=== PATIENT | male | born 1955 | race Caucasian/White ===

== ENCOUNTER 2020-03-12 20:57 | Inpatient (IN) | payer OTHER, SELFPAY ==
[2020-03-12] VITALS (8 sets, daily range): BP systolic 89–97; BP diastolic 70–75; PULSE 77–91; RESP 13–30; TEMP 36.6; O2SAT 100
--- NOTE | ~2020-03-12 | XR_ITS ---
EXAMINATION: XR chest 1V portable 03/12/2020 22:03 INDICATION: Shortness of breath PROCEDURE: AP portable chest COMPARISON: No prior studies for comparison. FINDINGS: The lungs are clear. Cardiomegaly. There are no pleural effusions. There is no pneumothora x suspected. IMPRESSION: 1: NO ACUTE CARDIOPULMONARY DISEASE. Reviewed, dictated and finalized at location A.
--- NOTE | ~2020-03-12 | CT_ITS ---
EXAMINATION: CTA chest PE protocol DATE: 03/12/2020 23:21 CDT INDICATION: Shortness of breath. TECHNIQUE: Computed tomographic angiography (CTA) of the chest was performed with 100 mL Omnipaque-35 0 intravenous contrast. The dose-length product was 568.47 mGy-cm. Maximum intensity projection 3D-re constructions of the aorta and other arteries were constructed by the technologist on a separate work station. Automated exposure control and iterative reconstruction technique were employed. COMPARISON: Chest dated 03/12/2020 FINDINGS: Study is technically adequate. Evaluation of the lower lobe segmental pulmonary arteries li mited by motion artifact. No central pulmonary embolism. Small right pleural effusion. Trace left ple ural effusion. Small amount of ascites in the upper abdomen. Evaluation for pulmonary nodules limited by motion. Cardiomegaly. There is atherosclerosis of the aorta and coronary arteries. No thoracic ly mphadenopathy. No focal airspace consolidation. Mild thoracic spondylosis. IMPRESSION: 1. No large central pulmonary embolism. Evaluation of the peripheral pulmonary arteries limited by mo tion artifact. 2: Small pleural effusions. 3: Small amount of ascites. Reviewed, dictated and finalized at location A. IMPRESSION: 1. No large central pulmonary embolism. Evaluation of the peripheral pulmonary arteries limited by motion artifact. 2: Small pleural effusions. 3: Small amount of ascites.
--- NOTE | ~2020-03-12 | US_ITS ---
EXAMINATION: US venous doppler LE EXAM DATE: 03/13/2020 10:49 INDICATION: Shortness of breath and elevated d-dimer. TECHNIQUE: Multiple grayscale, color flow and Doppler images of the lower extremity deep venous syste ms bilaterally were obtained and reviewed. There is no prior study for comparison. FINDINGS: RIGHT SIDE Common femoral: -------- Normal. Profunda femoral: ------- Normal. Femoral: Thrombosed. Popliteal: Nonocclusive thrombus. Posterior tibial: ---------Nonocclusive thrombus. Peroneal: Nonocclusive thrombus. Gastrocnemius: Not visualized. Soleus: Not visualized. Greater saphenous: ----- Normal. Lesser saphenous: ------ Not visualized. LEFT SIDE Common femoral: -------- Normal. Profunda femoral: ------- Normal. Femoral: Normal. Popliteal: Nonocclusive thrombus. Posterior tibial: --------- Normal. Peroneal: Normal. Gastrocnemius: Not visualized. Soleus: Not visualized. Greater saphenous: ----- Normal. Lesser saphenous: ------ Not visualized. IMPRESSION: Positive for bilateral DVT, more extensive on the right. Reviewed, dictated and finalized at location A.
--- NOTE | 2020-03-12 21:04 | ECG_ITS ---
Measurements Intervals [place] Rate: 91 P: 64 VA: 223 QRS: -49 QRSD: 119 T: 126 QT: 379 QTc: 467 Interpretive Statements SINUS RHYTHM WITH FIRST DEGREE AV BLOCK VENTRICULAR PREMATURE COMPLEXES POSSIBLE LEFT ATRIAL ENLARGEMENT INTRAVENTRICULAR CONDUCTION DELAY LEFT VENTRICULAR HYPERTROPHY AND ST-T CHANGE EXTENSIVE ANTERIOR INFARCT, AGE INDETERMINATE INFERIOR INFARCT, AGE INDETERMINATE ST-T WAVE ABNORMALITY IN HIGH LATERAL LEADS- CONSIDER ISCHEMIA BASELINE ARTIFACT- I, II, AVR, V4-V6 ABNORMAL ECG Electronically Signed On 03-13-2020 14:02:04 CDT by Mohan Maldonado D.O.
--- NOTE | 2020-03-12 21:20 | PC.NURSE ---
Called lab to add on D-Dimer
[2020-03-12 21:25] LABS: Alveolar/Arterial O2 Gradient 90.7 mmHg; Base Excess ABG -4.2 mEq/l (+/-2.0); Carboxyhemoglobin 2.5 % THb (0-2.0); Fractional Inspired Oxygen 32 %; Methemoglobin ABG 0.4 %THb (0-1.5); Oxygen Content ABG 19.3 %vol (16.0-22.0); Oxygen Saturation ABG 97.9 % (95.0-100.0); PCO2 ABG 29.9 mmHg (35.0-45.0); PO2 ABG 102.5 mmHg (80.0-100.0); Reduced Hemoglobin 2.1 %THb (0-5.0); Total Hemoglobin 14.4 g/dL (12.0-18.0)
[2020-03-12 21:26] LABS: Device NASAL CANNULA; Modified Allen's Test Pass; Site Drawn LEFT RADIAL
[2020-03-12 21:28] LABS: Basophils Percent Auto 0.3 % (0.2-1.2); Eosinophils Absolute Auto 0.1 K/mm3 (0-0.3); Hematocrit 47.6 % (42.0-52.0); Hemoglobin 14.5 g/dL (14.0-18.0); Immature Granulocyte Absolute 0.03 K/mm3 (0.00-0.031); Immature Granulocyte Percent A 0.4 % (0-0.5); Lymphocytes Absolute Auto 2.77 K/mm3 (0.9-3.2); Lymphocytes Percent Auto 37.8 % (18.3-44.2); Mean Corpuscular HGB Conc 30.5 g/dl (32-36); Mean Corpuscular Hemoglobin 25.8 pg (26-34); Mean Corpuscular Volume 84.8 fl (80-100); Mean Platelet Volume 11.7 fl (7.4-10.4); Monocytes Absolute Auto 0.7 K/mm3 (0.1-0.6); Neutrophils Absolute Auto 3.7 K/mm3 (1.3-6.7); Neutrophils Percent Auto 50.5 % (45.5-73.1); Platelet Count Result 193 k/mm3 (150-375); Red Blood Count 5.61 M/mm3 (4.6-6.20); Red Cell Distribution Width 17.3 % (11.5-14.5); White Blood Count 7.3 K/mm3 (4.5-10.0)
[2020-03-12 21:33] LABS: INR 1.4; Prothrombin Time 16.6 Seconds (11.1-14.7)
[2020-03-12 21:34] LABS: Alanine Aminotransferase 23 U/L (4-50); Albumin Level 3.6 g/dL (3.5-5.1); Alkaline Phosphatase 119 U/L (38-126); Anion Gap 11.5 mmol/L (7-16); Aspartate Amino Transferase 20 U/L (17-59); Bilirubin,Total 1.5 mg/dL (0.2-1.3); Blood Urea Nitrogen 17 mg/dL (9-20); Calcium 8.5 mg/dL (8.4-10.2); Carbon Dioxide 23 mmol/L (22-30); Chloride 105 mmol/L (98-107); Estimated CRCL calculation 90 ml/min; Estimated Glomerular Filt Rate > 60; Glucose 217 mg/dL (75-110); Lipase 56 U/L (23-300); Partial Thromboplastin Time 25.3 SECONDS (22.3-36.8); Potassium 4.5 mmol/L (3.4-5.0); Sodium 135 mmol/L (137-145)
[2020-03-12 21:45] LABS: D Dimer 1.46 ug/mL (<0.48)
[2020-03-12 21:49] LABS: NT Pro B Type Natriuretic Pept 12000 PG/ML (5-100); Troponin I 0.045 ng/mL (0.000-0.034)
[2020-03-12 21:55] LABS: Add Urine Microscopic? NO; Appearance Urine Clear (Clear); Bilirubin Urine Negative (Negative); Blood Urine Negative (Negative); Color Urine Yellow (Yellow); Glucose Urine UA Negative (Negative); Ketones Urine Negative (Negative); Leukocyte Esterase Ur Negative LEU/UL (Negative); Nitrate Urine Negative (Negative); Protein Urine Negative (Negative); Specific Grav Ur 1.009 (1.001-1.035); Urobilinogen Urine Negative mg/dL (<2.0)
--- NOTE | 2020-03-12 22:33 | ED.GENADULT ---
HPI - General Adult General Chief complaint: Chest Pain Stated complaint: sob Time Seen by Provider: 03/12/20 21:14 Source: patient and family Mode of arrival: EMS Limitations: no limitations History of Present Illness HPI narrative: 64 years old white male history of diabetes, hypertension, hyperlipidemia, COPD, CHF, coronary artery disease, stroke, was discharged 2 days ago from [facility]. Because of shortness of breath and swelling legs. Patient was a scheduled to get pacemaker and defibrillator at [facility] November 2019 but because of the COVID-19, he could not. At home patient got up to go to the bathroom he ran out of breath. He does not have oxygen at home. Currently patient is asymptomatic as long as he laying down or sitting down. Patient is full code. Patient came by ambulance to our emergency room with the possibility of STEMI, EKG on arrival showed no STEMI. Dr. MELENDREZ was notified and agreed Related Data Allergies Allergy/AdvReac Type Severity Reaction Status Date / Time Cephalosporins Allergy Unknown Verified 05/31/17 11:34 Review of Systems Review of Systems: Narrative: CONSTITUTIONAL: Denies fever, chills, or sweats. EYES: Denies visual changes, redness, or discharge. ENT: Denies rhinorrhea, congestion, sore throat, or otalgia. CARDIOVASCULAR: Denies chest pain, palpitations, or edema. RESPIRATORY: Denies cough or dyspnea. GASTROINTESTINAL: Denies abdominal pain, nausea, vomiting, or diarrhea. GENITOURINARY: Denies dysuria or hematuria. SKIN: Denies rash or itching. MUSCULOSKELETAL: Denies back pain, joint pain, or myalgia. NEUROLOGIC: Denies headache, numbness, or weakness. PSYCHIATRIC: Denies anxiety or depression. [facility] Family History Family History Father Family history of lung cancer, Onset Age: 51 Social History Social History Smoking status: Heavy tobacco smoker Second hand tobacco smoke exposure: Yes Alcohol intake: never Exam Narrative: Exam Narrative: General appearance: Well-developed, well-nourished Skin: Normal color, 1+ edema lower extremity bilaterally more on the left side Head: Normocephalic, nontraumatic Eyes: Clear conjunctiva ENT: Oropharynx normal, ears normal, nose normal Neck: Supple, nontender Chest and respiratory: Airway patent, no respiratory distress, no accessory muscle use Heart: Regular rate/rhythm Abdomen: Soft, nontender, no organomegaly, quiet bowel sounds Vascular: Normal peripheral pulses, normal capillary refill. 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 My differential diagnosis COPD exacerbation, viral infection, CHF and acute coronary syndrome. Labs, chest x-ray, blood gas on 2 L ordered. Further plan to follow Differential Diagnosis Differential Diagnosis: CHF, COPD exacerbation, pneumonia, viral syndrome, electrolyte imbalance, coronary artery disease Vital Signs Vital Signs: Vital Signs Temperature 36.6
--- NOTE | 2020-03-12 23:12 | PC.NURSE ---
Report received from YOUNG Benítez. Assumed care of patient at this time.
[2020-03-12] MEDS: ENOXAPARIN 100 MG/ML SYRINGE 90 MG SUB-Q (23:22)
[2020-03-13] VITALS (19 sets, daily range): BP systolic 82–99; BP diastolic 63–81; PULSE 78–110; RESP 15–20; TEMP 36.1–36.9; O2SAT 94–100; BMI 26.9
--- NOTE | 2020-03-13 01:16 | PM.IMHP ---
H&P: HPI History of Present Illness Date/Time: 03/13/20 01:16 Chief complaint: Exertional shortness of breath++ Narrative: This is a 64 year old diabetic male with known history of CAD+, HTN, COPD, and severe systolic heart failure w/ EF of 10% presented to the hospital wtih a complaint of severe exertional shortness of breath. The patient was just discharged from [facility] two days ago. The patient was supposed to have an AICD placed in November of this year but this was canceled due to COVID-19. The patient is a chronic smoker and continues to smoke cigarettes. Tonight he complains that he has had severe shortness of breath with minimal activity. He denies any fevers, chills, or signifciant cough. He has also noticed worsening lower extremity swelling since he has been home. The patient denies any chest pain, abdominal pain, nausea, vomiting, headache, wheeze, dysuria, hematuria, diarrhea or rectal bleeding. The patient was found to be hypoxic in the ER tonight and has been placed on 2L of oxygen. CXR was obtained which was virtually unremarkable. On arrival to the ER, EMS had reported a possible STEMI but repeat EKG was sent to Cardiology and STEMI was canceled. We have been asked to admit the patient to the hospital for further care. He has no other complaints. Review of Systems Review of Systems: All systems reviewed & are unremarkable except as noted in HPI and below PMFSH Past Medical History Medical History (Updated 03/13/20 @ 01:40 by Adin Gardner MD) CAD (coronary artery disease) COPD (chronic obstructive pulmonary disease) Diabetes mellitus HTN (hypertension) with goal to be determined Systolic CHF Surgical History Surgical History (Updated 03/13/20 @ 01:21 by Adin Gardner MD) History of coronary artery stent placement Family History Family History Father Family history of lung cancer, Onset Age: 51 Social History Social History Smoking packs per day: 1 Smoking cigarettes per day: 20.0 Years smoked: 45 Smoking pack-years: 45.00 Smoking status: Heavy tobacco smoker Tobacco type: cigarettes Second hand tobacco smoke exposure: Yes Alcohol intake: never Substance use: never Substance use type: does not use Gender identity (if verbalized by the patient): Male Spiritual care concerns: No Meds Home Medications and Allergies Home Medications Medication Instructions Recorded Confirmed Type furosemide 40 mg PO DAILY 03/13/20 03/13/20 History Allergies Allergy/AdvReac Type Severity Reaction Status Date / Time Cephalosporins Allergy Unknown Verified 05/31/17 11:34 Vital Signs Vital Signs - 24 hr 03/12/20 21:01 03/12/20 22:28 03/12/20 23:23 Temperature 36.6 C 36.6 C Pulse Rate 91 85 78 Respiratory Rate 19 30 H Blood Pressure 97/74 L 89/75 L 90/70 L Pulse Oximetry 100 100 03/12/20 23:24 03/12/20 23:25 03/12/20 23:30 Temperature Pulse Rate 81 78 77 Respiratory Rate 18 18 21 H Blood Pressure 90/70 L 91/72 L Pulse Oximetry 100 03/12/20 23:31 03/12/20 23:45 03/13/20 00:33 Temperature 36.9 C Pulse Rate 80 83 83 Respiratory Rate 13 15 Blood Pressure 95/72 L Pulse Oximetry 96 03/13/20 00:45 03/13/20 01:00 Temperature 36.2 C L Pulse Rate 78 Respiratory Rate 16 Blood Pressure 88/70 L 99/81 L Pulse Oximetry 99 Exam Const: General: cooperative, alert, awake, ill appearing chronically and tired appearing Nutritional Appearance: thin Orientation/consciousness: patient oriented x3 HENMT: Head: normal to inspection General nose exam: Normal external nose present Face and sinus: normal facial exam Mouth: Yes Normal oral and palatal mucosa present and Yes oropharynx normal Eyes: Pupils: Equal, round and reactive pupils present EOM: EOMs intact bilaterally Neck: Neck: supple and no JVD Thyroid:
--- NOTE | 2020-03-13 01:25 | PC.NURSE ---
This patient, Rex Marr, was admitted to IMU Room 201-01 on 03/13/20 at 0045. Patient/family oriented to hospital policies and general routines including ID bracelet, bed and alarms, visiting hours, pain management, procedures, bathroom and other care routines, personal items, smoking policy, room service/diet, and visiting hours. Valuables list has been completed. Information on how to activate the Rapid Response Team has been discussed. Patient/Family are encouraged to report perceived risks to care and to ask questions if they do not understand what they are told or what they should do.
[2020-03-13 01:35] LABS: Troponin I 0.041 ng/mL (0.000-0.034)
[2020-03-13] MEDS: NICOTINE (*PBKC) 21 MG PATCH 1 PATCH TRANSDERM ×2 (01:47→08:43)
--- NOTE | 2020-03-13 01:47 | ECHO_ITS ---
Patient Info Name: Rex Marr Age: 64 years : 1955 Gender: Male Ht: 72 in Wt: 198 lbs BSA: 2.15 m2 HR: 85 bpm BP: 93 / 71 mmHg Heart Rhythm: Sinus Rhythm Technical Quality: Fair Exam Date: 03/13/2020 9:30 AM Exam Location: [facility] Pulmonary Patient Status: Inpatient Admit Date: 03/12/2020 Staff Ordering Physician: Adin Gardner MD Director Patient Accounting: Verónica Keller RDCS Attending Provider: Adin Gardner MD Referring Physician: Jj COLLAZO; Exam Type: CA echo dop color flow w con Study Info Complete two-dimensional, color flow and Doppler transthoracic echocardiogram is performed with contrast to opacify the left ventricle and to improve the deliniation of the left ventricle endocardial borders. Contrast/Agitated Saline Contrast/Ag. Saline: Definity Amount: 2.00 ml Summary 1. Left ventricular chamber dimension is severely enlarged. 2. Left ventricular systolic function is severely reduced, estimated at <15%. 3. There is mildly increased left ventricular wall thickness. 4. The left ventricular diastolic function is grade II diastolic dysfunction. 5. There is sessile thrombus visualized in the left ventricle. 6. Right ventricular chamber dimension is severely enlarged. 7. Right ventricular systolic function is reduced. 8. There is moderate mitral valve regurgitation. 9. There is moderate tricuspid valve regurgitation. 10. Mild pulmonary hypertension, estimated pulmonary arterial systolic pressure is 41 mmHg. 11. There is mild pulmonic regurgitation. 12. There is small pericardial effusion. Left Ventricle Left ventricular chamber dimension is severely enlarged. Left ventricular systolic function is severely reduced, estimated at <15%. There is mildly increased left ventricular wall thickness. The left ventricular diastolic function is grade II diastolic dysfunction. There is sessile thrombus visualized in the left ventricle. Right Ventricle Right ventricular chamber dimension is severely enlarged. Right ventricular systolic function is reduced. Left Atria Left atrial chamber dimension is moderately enlarged. Right Atria Right atrial chamber dimension is moderately enlarged. Atrial Septum Intact interatrial septum visualized by Doppler imaging. Aortic Valve The aortic valve is trileaflet. There is no aortic valve sclerosis. There is no aortic valve stenosis. There is trace aortic valve regurgitation. Pulmonic Valve The pulmonic valve is normal. There is no pulmonic valve stenosis. There is mild pulmonic regurgitation. Mitral Valve The mitral valve has thickened leaflets. There is no mitral valve stenosis. There is moderate mitral valve regurgitation. Tricuspid Valve The tricuspid valve leaflets are normal. There is no significant tricuspid valve stenosis. There is moderate tricuspid valve regurgitation. Mild pulmonary hypertension, estimated pulmonary arterial systolic pressure is 41 mmHg. Pericardium/Pleural The pericardium appears normal. There is small pericardial effusion. Inferior Vena Cava Dilated inferior vena cava with <50% collapse upon inspiration consistent with elevated right atrial pressure, 15 mmHg. Aorta The aortic root size at the sinus of Valsalva is normal. The prox ascending aorta size is normal. Left Ventricular Outflow Tract Name Mónica
[2020-03-13] MEDS: FUROSEMIDE INJ 40 MG/4 ML VIAL IV PUSH ×2 (02:14→17:20)
[2020-03-13 04:00] LABS: Basophils Percent Auto 0.3 % (0.2-1.2); Eosinophils Percent Auto 0.6 % (0-4.4); Hematocrit 44.4 % (42.0-52.0); Hemoglobin 13.6 g/dL (14.0-18.0); Immature Granulocyte Absolute 0.01 K/mm3 (0.00-0.031); Immature Granulocyte Percent A 0.2 % (0-0.5); Lymphocytes Absolute Auto 2.27 K/mm3 (0.9-3.2); Lymphocytes Percent Auto 35.2 % (18.3-44.2); Mean Corpuscular HGB Conc 30.6 g/dl (32-36); Mean Corpuscular Hemoglobin 25.6 pg (26-34); Mean Corpuscular Volume 83.6 fl (80-100); Mean Platelet Volume 11.2 fl (7.4-10.4); Monocytes Absolute Auto 0.6 K/mm3 (0.1-0.6); Monocytes Percent Auto 8.5 % (2.6-8.5); Neutrophils Absolute Auto 3.6 K/mm3 (1.3-6.7); Neutrophils Percent Auto 55.2 % (45.5-73.1); Platelet Count Result 181 k/mm3 (150-375); Red Blood Count 5.31 M/mm3 (4.6-6.20); Red Cell Distribution Width 16.6 % (11.5-14.5); White Blood Count 6.5 K/mm3 (4.5-10.0)
[2020-03-13 04:05] LABS: Anion Gap 10.7 mmol/L (7-16); Blood Urea Nitrogen 17 mg/dL (9-20); Calcium 8.4 mg/dL (8.4-10.2); Carbon Dioxide 26 mmol/L (22-30); Chloride 103 mmol/L (98-107); Estimated CRCL calculation 90 ml/min; Estimated Glomerular Filt Rate > 60; Glucose 160 mg/dL (75-110); Magnesium 1.9 mg/dL (1.6-2.3); Potassium 3.7 mmol/L (3.4-5.0); Sodium 136 mmol/L (137-145)
[2020-03-13 05:31] LABS: Thyroid Stimulating Hormone Reflex < 0.015 uIU/mL (0.465-4.68)
[2020-03-13 06:12] LABS: Free T4 Free Thyroxine Reflex 2.85 ng/dL (0.78-2.19)
[2020-03-13 08:11] LABS: Glucose Point of Care 128 (65-105)
[2020-03-13] MEDS: ENOXAPARIN 40 MG/0.4 ML SYRINGE SUB-Q (08:43)
--- NOTE | 2020-03-13 09:48 | P.PNIM_ITS ---
Progress Note: A&P Assessment and Plan (1) Systolic CHF: Qualifiers: Heart failure chronicity: acute on chronic Qualified Code(s): I50.23 - Acute on chronic systolic (congestive) heart failure Code(s): I50.20 - Unspecified systolic (congestive) heart failure Status: Acute Assessment and Plan: * Continue IV furosemide * add low-dose carvedilol per Cardiology * prognosis appears poor (2) DVT (deep venous thrombosis): Qualifiers: DVT location: lower extremity Affected thrombotic vein of extremity: popliteal Chronicity: acute Laterality: bilateral Qualified Code(s): I82.433 - Acute embolism and thrombosis of popliteal vein, bilateral Code(s): I82.409 - Acute embolism and thrombosis of unspecified deep veins of unspecified lower extremity Status: Acute Assessment and Plan: * Eliquis 10 mg b.i.d. day 1 * HAS-BLED score = 1 (3) Secondary pulmonary hypertension: Status: Acute Assessment and Plan: * likely due to congestive heart failure acute on chronic with possible pulmonary emboli (4) LV (left ventricular) mural thrombus: Code(s): I51.3 - Intracardiac thrombosis, not elsewhere classified Status: Acute Assessment and Plan: * anticoagulation (5) Elevated troponin: Code(s): R79.89 - Other specified abnormal findings of blood chemistry Status: Acute Assessment and Plan: * likely due to acute on chronic congestive heart failure (6) COPD (chronic obstructive pulmonary disease): Qualifiers: COPD type: unspecified COPD Qualified Code(s): J44.9 - Chronic obstructive pulmonary disease, unspecified Code(s): J44.9 - Chronic obstructive pulmonary disease, unspecified Status: Acute Assessment and Plan: * clinically stable (7) Tobacco dependence: Code(s): F17.200 - Nicotine dependence, unspecified, uncomplicated Status: Chronic (8) Hypoxia: Code(s): R09.02 - Hypoxemia Status: Acute (9) Pleural effusion: Code(s): J90 - Pleural effusion, not elsewhere classified Status: Acute (10) CAD (coronary artery disease): Qualifiers: Coronary Disease-Associated Artery/Lesion type: [place] artery [place] vs. transplanted heart: [place] heart Associated angina: without angina Qualified Code(s): I25.10 - Atherosclerotic heart disease of [place] coronary artery without angina pectoris Code(s): I25.10 - Atherosclerotic heart disease of [place] coronary artery without angina pectoris Status: Chronic Assessment and Plan: * currently without angina (11) HTN (hypertension) with goal to be determined: Code(s): I10 - Essential (primary) hypertension Status: Acute Assessment and Plan: * now hypotensive presumably due to low cardiac output (12) Diabetes mellitus: Qualifiers: Diabetes mellitus type: type 2 Diabetes mellitus 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 No chest pain. Comfortable this AM while at rest. Poor appetite. Review of Systems Review of Systems: All systems reviewed & are unremarkable excep
--- NOTE | 2020-03-13 09:48 | PM.IMPN ---
Progress Note: A&P Assessment and Plan (1) Systolic CHF: Qualifiers: Heart failure chronicity: acute on chronic Qualified Code(s): I50.23 - Acute on chronic systolic (congestive) heart failure Code(s): I50.20 - Unspecified systolic (congestive) heart failure Status: Acute Assessment and Plan: Continue IV furosemide add low-dose carvedilol per Cardiology prognosis appears poor (2) DVT (deep venous thrombosis): Qualifiers: DVT location: lower extremity Affected thrombotic vein of extremity: popliteal Chronicity: acute Laterality: bilateral Qualified Code(s): I82.433 - Acute embolism and thrombosis of popliteal vein, bilateral Code(s): I82.409 - Acute embolism and thrombosis of unspecified deep veins of unspecified lower extremity Status: Acute Assessment and Plan: Eliquis 10 mg b.i.d. day 1 HAS-BLED score = 1 (3) Secondary pulmonary hypertension: Status: Acute Assessment and Plan: likely due to congestive heart failure acute on chronic with possible pulmonary emboli (4) LV (left ventricular) mural thrombus: Code(s): I51.3 - Intracardiac thrombosis, not elsewhere classified Status: Acute Assessment and Plan: anticoagulation (5) Elevated troponin: Code(s): R79.89 - Other specified abnormal findings of blood chemistry Status: Acute Assessment and Plan: likely due to acute on chronic congestive heart failure (6) COPD (chronic obstructive pulmonary disease): Qualifiers: COPD type: unspecified COPD Qualified Code(s): J44.9 - Chronic obstructive pulmonary disease, unspecified Code(s): J44.9 - Chronic obstructive pulmonary disease, unspecified Status: Acute Assessment and Plan: clinically stable (7) Tobacco dependence: Code(s): F17.200 - Nicotine dependence, unspecified, uncomplicated Status: Chronic (8) Hypoxia: Code(s): R09.02 - Hypoxemia Status: Acute (9) Pleural effusion: Code(s): J90 - Pleural effusion, not elsewhere classified Status: Acute (10) CAD (coronary artery disease): Qualifiers: Coronary Disease-Associated Artery/Lesion type: [place] artery [place] vs. transplanted heart: [place] heart Associated angina: without angina Qualified Code(s): I25.10 - Atherosclerotic heart disease of [place] coronary artery without angina pectoris Code(s): I25.10 - Atherosclerotic heart disease of [place] coronary artery without angina pectoris Status: Chronic Assessment and Plan: currently without angina (11) HTN (hypertension) with goal to be determined: Code(s): I10 - Essential (primary) hypertension Status: Acute Assessment and Plan: now hypotensive presumably due to low cardiac output (12) Diabetes mellitus: Qualifiers: Diabetes mellitus type: type 2 Diabetes mellitus exterminator insulin use: without exterminator use Diabetes mellitus complication status: without complication Qualified Code(s): E11.9 - Type 2 diabetes mellitus without complications Code(s): E11.9 - Type 2 diabetes mellitus without complications Status: Chronic Assessment and Plan: diet controlled Subjective Date/time seen: 03/13/20 09:48 Interval history: Admitted 03/12 with increased WATKINS, ankle swelling. No chest pain. Comfortable this AM while at rest. Poor appetite. Review of Systems Review of Systems: All systems reviewed & are unremarkable except as noted in HPI and below Exam Narrative: Exam Narrative: HEENT: EOMI, PERRL, sclerae nonicteric, pharyngeal mucosa pink and intact NECK: No JVD, adenopathy, or thyromegaly CHEST: Clear to auscultation. Normal effort. HEART: NL S1/S2, regular, no murmur ABDOMEN: BS+, soft, nontender, no mass, no bruits EXTREMITIES: No cyanosis, 2+ PRETIBIAL EDEMA BILATERALLY NEUROLOGIC: CN intact and symmetric to inspection. M
[2020-03-13 12:19] LABS: Glucose Point of Care 168 (65-105)
[2020-03-13 12:24] LABS: Hematocrit 43.2 % (42.0-52.0); Hemoglobin 13.4 g/dL (14.0-18.0); Mean Corpuscular Hemoglobin 25.7 pg (26-34); Mean Corpuscular Volume 82.8 fl (80-100); Mean Platelet Volume 11.2 fl (7.4-10.4); Platelet Count Result 177 k/mm3 (150-375); Red Blood Count 5.22 M/mm3 (4.6-6.20); Red Cell Distribution Width 16.4 % (11.5-14.5); White Blood Count 6.1 K/mm3 (4.5-10.0)
[2020-03-13 12:35] LABS: Anion Gap 9.8 mmol/L (7-16); Blood Urea Nitrogen 19 mg/dL (9-20); Calcium 8.6 mg/dL (8.4-10.2); Carbon Dioxide 26 mmol/L (22-30); Chloride 104 mmol/L (98-107); Estimated CRCL calculation 90 ml/min; Estimated Glomerular Filt Rate > 60; Glucose 155 mg/dL (75-110); Magnesium 1.9 mg/dL (1.6-2.3); Potassium 3.8 mmol/L (3.4-5.0); Sodium 136 mmol/L (137-145)
--- NOTE | 2020-03-13 12:37 | PM.CNCAR ---
Assessment and Plan Assessment and plan (1) Elevated troponin: Code(s): R79.89 - Other specified abnormal findings of blood chemistry Status: Acute Assessment and Plan: this is not related to acute plaque rupture. Is related to heart failure (2) COPD (chronic obstructive pulmonary disease): Qualifiers: COPD type: unspecified COPD Qualified Code(s): J44.9 - Chronic obstructive pulmonary disease, unspecified Code(s): J44.9 - Chronic obstructive pulmonary disease, unspecified Status: Acute Assessment and Plan: related to tobacco (3) Acute on chronic systolic heart failure: Code(s): I50.23 - Acute on chronic systolic (congestive) heart failure Status: Acute Assessment and Plan: I am confused to his medical regimen. Request records from Janie and Dr. Haywood his office. Continue furosemide 40 mg IV daily. His blood pressure is very soft but I suspect he predominantly lives with a very low blood pressure. Will initiate very low-dose carvedilol therapy at 1.56 mg q.12 hours. he also needs some afterload reduction as /if he can tolerate. Will need to go very low and slow with his medical regimen. Basic metabolic panel in the morning. EKG in a.m. (4) CAD (coronary artery disease): Qualifiers: Coronary Disease-Associated Artery/Lesion type: [place] artery [place] vs. transplanted heart: [place] heart Associated angina: without angina Qualified Code(s): I25.10 - Atherosclerotic heart disease of [place] coronary artery without angina pectoris Code(s): I25.10 - Atherosclerotic heart disease of [place] coronary artery without angina pectoris Status: Chronic (5) LV (left ventricular) mural thrombus: Code(s): I51.3 - Intracardiac thrombosis, not elsewhere classified Status: Acute Assessment and Plan: Discontinue subcutaneous Lovenox and start him on oral anticoagulation. History of Present Illness History of Present Illness Consult date/time: 03/13/20 12:37 Requesting physician: Adin Gardner MD Consult reason: congestive heart failure Reason For Visit: Exertional shortness of breath++ Narrative: Reason for consultation: CHF date of service 03/13/2020 History: Patient is a 64-year-old male who follows with Dr. Haywood at [place]. Came to the hospital because of worsening shortness of breath. He was recently in the emergency department and hospital [facility]. He has a severely reduced ejection fraction and had formally been scheduled for an ICD but since Coronavirus hit he essentially disconnected from hospital care for a while. He was discharged recently from the hospital and was home for a couple days with a restarted developed worsening shortness of breath again. He denies any chest pain, syncope, presyncope, paroxysmal nocturnal dyspnea, orthopnea. He was found to be hypoxic in the ER with worsening swelling. BNP was elevated .He was started on diuretics. And is feeling mildly better at this point. Troponins were elevated and because of heart failure and elevated troponins, Cardiology consultation was requested. Review of Systems Review of Systems: All systems reviewed & are unremarkable except as noted in HPI and below Constitutional: Constitutional: Reports weakness Eyes: Eyes: Denies blurry vision ENT: Reports Normal hearing present Cardiovascular: Cardiovascular: Denies chest pain and Reports pedal edema Respiratory: Respiratory: Reports dyspnea Gastrointestinal: Gastrointestinal: Denies abdominal pain Genitourinary: Genitourinary: Denies dysuria Musculoskeletal: Musculoskeletal: Denies neck pain Integumentary/Breasts: Skin/Breast: Denies dry skin Neurologic: Denies headache(s) Psychiatric: Psychiatric: Denies anxiety Endocrine: Endocrine: Denies fatigue Hematologic/Lymphatic: Hematologic/Lymphatic: Denies easy bleeding Allergic/Immunologic: Allergic/Immunologic: Denie
[2020-03-13] MEDS: carvediloL 1.56 MG TABLET PO ×2 (13:15→20:12)
[2020-03-13 16:33] LABS: Glucose Point of Care 188 (65-105)
[2020-03-13] MEDS: APIXABAN 5 MG TABLET 10 MG PO (20:11)
[2020-03-13 20:38] LABS: Glucose Point of Care 210 (65-105)
[2020-03-14] VITALS (17 sets, daily range): BP systolic 90–103; BP diastolic 64–83; PULSE 79–117; RESP 18–21; TEMP 36.1–36.9; O2SAT 98–100
--- NOTE | 2020-03-14 08:00 | ECG_ITS ---
Measurements Intervals [place] Rate: 84 P: 67 DE: 233 QRS: -52 QRSD: 137 T: 125 QT: 426 QTc: 504 Interpretive Statements SINUS RHYTHM WITH FIRST DEGREE AV BLOCK VENTRICULAR TRIPLET LEFT AXIS DEVIATION LEFT BUNDLE BRANCH BLOCK INFERIOR INFARCT OR DUE TO LEFT BUNDLE BRANCH BLOCK BASELINE ARTIFACT- II, III ABNORMAL ECG Electronically Signed On 03-14-2020 9:01:14 CDT by Mohan Maldonado D.O.
[2020-03-14 08:28] LABS: Glucose Point of Care 131 (65-105)
[2020-03-14] MEDS: carvediloL 1.56 MG TABLET PO ×2 (08:48→20:34)
[2020-03-14] MEDS: APIXABAN 5 MG TABLET 10 MG PO ×2 (08:48→20:34)
[2020-03-14] MEDS: NICOTINE (*PBKC) 21 MG PATCH 1 PATCH TRANSDERM (08:49)
[2020-03-14 10:12] LABS: Hematocrit 44.4 % (42.0-52.0); Mean Corpuscular HGB Conc 31.5 g/dl (32-36); Mean Corpuscular Hemoglobin 25.7 pg (26-34); Mean Corpuscular Volume 81.6 fl (80-100); Mean Platelet Volume 10.9 fl (7.4-10.4); Platelet Count Result 186 k/mm3 (150-375); Red Blood Count 5.44 M/mm3 (4.6-6.20); Red Cell Distribution Width 16.7 % (11.5-14.5); White Blood Count 6.4 K/mm3 (4.5-10.0)
[2020-03-14 10:29] LABS: Anion Gap 11.7 mmol/L (7-16); Blood Urea Nitrogen 21 mg/dL (9-20); Calcium 8.7 mg/dL (8.4-10.2); Carbon Dioxide 24 mmol/L (22-30); Chloride 105 mmol/L (98-107); Estimated CRCL calculation 90 ml/min; Estimated Glomerular Filt Rate > 60; Glucose 130 mg/dL (75-110); Potassium 3.7 mmol/L (3.4-5.0); Sodium 137 mmol/L (137-145)
--- NOTE | 2020-03-14 10:42 | PM.PNCARD ---
Progress Note: A&P Assessment and Plan (1) Elevated troponin: Code(s): R79.89 - Other specified abnormal findings of blood chemistry Status: Acute Assessment and Plan: this is not related to acute plaque rupture. Is related to heart failure (2) COPD (chronic obstructive pulmonary disease): Qualifiers: COPD type: unspecified COPD Qualified Code(s): J44.9 - Chronic obstructive pulmonary disease, unspecified Code(s): J44.9 - Chronic obstructive pulmonary disease, unspecified Status: Acute Assessment and Plan: related to tobacco (3) Acute on chronic systolic heart failure: Code(s): I50.23 - Acute on chronic systolic (congestive) heart failure Status: Acute Assessment and Plan: Request records from [facility] and Dr. Haywood his office. Continue furosemide 40 mg IV daily. His blood pressure is very soft but I suspect he predominantly lives with a very low blood pressure. Will initiate very low-dose carvedilol therapy at 1.56 mg q.12 hours. he also needs some afterload reduction as /if he can tolerate. Will need to go very low and slow with his medical regimen. replace potassium with 40 mEq p.o. x1. Basic metabolic panel and magnesium level in the morning. Given the severe cardiomyopathy, frequent ventricular ectopy, left bundle branch block, he needs a BIV ICD (4) CAD (coronary artery disease): Qualifiers: Coronary Disease-Associated Artery/Lesion type: [place] artery [place] vs. transplanted heart: [place] heart Associated angina: without angina Qualified Code(s): I25.10 - Atherosclerotic heart disease of [place] coronary artery without angina pectoris Code(s): I25.10 - Atherosclerotic heart disease of [place] coronary artery without angina pectoris Status: Chronic (5) LV (left ventricular) mural thrombus: Code(s): I51.3 - Intracardiac thrombosis, not elsewhere classified Status: Acute Assessment and Plan: Continue oral anticoagulation Subjective Date/time seen: 03/14/20 10:42 Interval history: reason for admission /chief complaint: Shortness of breath, edema, heart failure Date of service 03/14/2020: He feels a little better today. No chest pain. Swelling is still present. Less short of breath Review of Systems Review of Systems: All systems reviewed & are unremarkable except as noted in HPI and below Constitutional: Constitutional: Denies fatigue, Denies headache(s) and Reports weakness Eyes: Eyes: Denies blurry vision ENT: Reports Normal hearing present, Denies headache(s) and Denies neck pain Cardiovascular: Cardiovascular: Denies chest pain, Reports pedal edema and Reports dyspnea Respiratory: Respiratory: Reports dyspnea Gastrointestinal: Gastrointestinal: Denies abdominal pain Genitourinary: Genitourinary: Denies dysuria Musculoskeletal: Musculoskeletal: Denies neck pain Integumentary/Breasts: Skin/Breast: Denies dry skin Neurologic: Reports Normal hearing present, Denies headache(s) and Reports weakness Psychiatric: Psychiatric: Denies anxiety Endocrine: Endocrine: Denies fatigue Hematologic/Lymphatic: Hematologic/Lymphatic: Denies easy bleeding Allergic/Immunologic: Allergic/Immunologic: Denies GI upset with certain foods Exam Narrative: Exam Narrative: Overall pleasant Const: General: no acute distress HENMT: General nose exam: Normal nares present Eyes: Sclera: sclerae normal Neck: Neck: no JVD Chest: Other: no reproducible chest wall pain to palpation Resp: Auscultation: clear to auscultation bilaterally Cardio: Rate: regular rate Skin: General skin exam: normal color Neuro: Cranial nerves: Yes Normal hearing present Cognition (Neuro): normal cognition Speech: normal speech Extrem: General: edema ( 2+ bilateral lower extremity edema) bilateral Psych: Mental Status: mental status grossly normal Objective Data Vital Signs Vital Sign
[2020-03-14] MEDS: POTASSIUM CHLORIDE 20 MEQ TABLET 40 MEQ PO (12:15)
[2020-03-14 12:29] LABS: Glucose Point of Care 176 (65-105)
--- NOTE | 2020-03-14 12:46 | PM.IMPN ---
Progress Note: A&P Assessment and Plan (1) Systolic CHF: Qualifiers: Heart failure chronicity: acute on chronic Qualified Code(s): I50.23 - Acute on chronic systolic (congestive) heart failure Code(s): I50.20 - Unspecified systolic (congestive) heart failure Status: Acute Assessment and Plan: Echo shows EF <15%. He has refused a life vest. Cardiology has been consulted and their recommendations are greatly appreciated. Continue IV furosemide 40 mg daily Continue low-dose carvedilol per cardiology recommendations He will require a biventricular ICD per cardiology. (2) DVT (deep venous thrombosis): Qualifiers: Affected thrombotic vein of extremity: popliteal Chronicity: acute DVT location: lower extremity Laterality: bilateral Qualified Code(s): I82.433 - Acute embolism and thrombosis of popliteal vein, bilateral Code(s): I82.409 - Acute embolism and thrombosis of unspecified deep veins of unspecified lower extremity Status: Acute Assessment and Plan: Bilateral DVTs, most extensive on right side. HAS-BLED score = 1 Continue eliquis 10 mg bid (Day 2) for 7 days, then eliquis 5 mg bid. Prior auth for eliquis was denied, therefore will plan to provide patient with 30 day coupon and will discuss with PCP tomorrow for further management. Care coordination is following. (3) LV (left ventricular) mural thrombus: Code(s): I51.3 - Intracardiac thrombosis, not elsewhere classified Status: Acute Assessment and Plan: Evident on echocardiogram. Continue anticoagulation with Eliquis (4) Elevated troponin: Code(s): R79.89 - Other specified abnormal findings of blood chemistry Status: Acute Assessment and Plan: Most likely due to acute on chronic congestive heart failure. ACS is not suspected. Continue to closely monitor symptoms. (5) COPD (chronic obstructive pulmonary disease): Qualifiers: COPD type: unspecified COPD Qualified Code(s): J44.9 - Chronic obstructive pulmonary disease, unspecified Code(s): J44.9 - Chronic obstructive pulmonary disease, unspecified Status: Acute Assessment and Plan: Chronic and stable. He is maintaining adequate oxygenation on room air. Supplemental O2 as needed. Continue bronchodilators as needed. (6) Tobacco dependence: Code(s): F17.200 - Nicotine dependence, unspecified, uncomplicated Status: Chronic Assessment and Plan: He smokes 1 ppd. Nicotine patch Continue to encourage smoking cessation. (7) Pleural effusion: Code(s): J90 - Pleural effusion, not elsewhere classified Status: Acute Assessment and Plan: Small right and trace left pleural effusion, most likely secondary to CHF. Continue IV lasix. (8) CAD (coronary artery disease): Qualifiers: Associated angina: without angina Coronary Disease-Associated Artery/Lesion type: [place] artery [place] vs. transplanted heart: [place] heart Qualified Code(s): I25.10 - Atherosclerotic heart disease of [place] coronary artery without angina pectoris Code(s): I25.10 - Atherosclerotic heart disease of [place] coronary artery without angina pectoris Status: Chronic Assessment and Plan: Stable and asymptomatic at this time. Continue to monitor. (9) HTN (hypertension) with goal to be determined: Code(s): I10 - Essential (primary) hypertension Status: Acute Assessment and Plan: Blood pressures have been soft, which is likely due to low cardiac output. Continue very low dose carvedilol per cardiology recommendations. Monitor blood pressures closely. 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
[2020-03-14] MEDS: FUROSEMIDE INJ 40 MG/4 ML VIAL IV PUSH (17:06)
[2020-03-14 17:18] LABS: Glucose Point of Care 198 (65-105)
[2020-03-14 20:57] LABS: Glucose Point of Care 209 (65-105)
[2020-03-15] VITALS (16 sets, daily range): BP systolic 98–108; BP diastolic 55–79; PULSE 85–106; RESP 18–24; TEMP 36.3–37; O2SAT 95–100
[2020-03-15 08:14] LABS: Hematocrit 44.4 % (42.0-52.0); Hemoglobin 13.6 g/dL (14.0-18.0); Mean Corpuscular HGB Conc 30.6 g/dl (32-36); Mean Corpuscular Volume 81.5 fl (80-100); Mean Platelet Volume 10.7 fl (7.4-10.4); Platelet Count Result 188 k/mm3 (150-375); Red Blood Count 5.45 M/mm3 (4.6-6.20); Red Cell Distribution Width 16.8 % (11.5-14.5); White Blood Count 6.2 K/mm3 (4.5-10.0)
[2020-03-15 08:26] LABS: Anion Gap 8.9 mmol/L (7-16); Blood Urea Nitrogen 23 mg/dL (9-20); Calcium 8.5 mg/dL (8.4-10.2); Carbon Dioxide 26 mmol/L (22-30); Chloride 106 mmol/L (98-107); Estimated CRCL calculation 90 ml/min; Estimated Glomerular Filt Rate > 60; Glucose 146 mg/dL (75-110); Potassium 3.9 mmol/L (3.4-5.0); Sodium 137 mmol/L (137-145)
[2020-03-15] MEDS: carvediloL 1.56 MG TABLET PO (08:50)
[2020-03-15] MEDS: APIXABAN 5 MG TABLET 10 MG PO ×2 (08:50→20:59)
[2020-03-15 08:54] LABS: Glucose Point of Care 135 (65-105)
[2020-03-15] MEDS: NICOTINE (*PBKC) 21 MG PATCH 1 PATCH TRANSDERM (08:55)
--- NOTE | 2020-03-15 11:11 | PM.PNCARD ---
Progress Note: A&P Assessment and Plan (1) Acute on chronic systolic heart failure: Code(s): I50.23 - Acute on chronic systolic (congestive) heart failure Status: Acute Assessment and Plan: Records from [facility] received. Was hospitalized from 03/05 to 03/08 for shortness of breath and lower extremity edema. Discharge diagnosis CHF systolic/diastolic acute on chronic. Hypertension. CAD. Old CVA. Tobacco use. Hyperlipidemia. Chronic COPD not in exacerbation According to the notes his echo showed severe global LV systolic delicate dysfunction with an ejection fraction of 10%. Grade 2 diastolic dysfunction. D-dimer was elevated but lower extremity Doppler was negative for DVT. Discharge medications: Amiodarone 200 mg daily Aspirin 81 mg daily Atorvastatin 40 mg at bedtime Carvedilol 25 mg at breakfast. 12.5 mg at bedtime. Clopidogrel 75 mg daily Furosemide 60 mg daily Losartan 25 mg daily Nitroglycerin 0.4 mg daily Polyethylene glycol 17 g daily Potassium chloride 20 mEq daily Flomax 0.4 mg daily Metformin 1000 mg b.i.d. Symbicort 80/4.5 2 puffs inhalation b.i.d. Spironolactone 25 mg daily. He tells me that his takes care of his medications. Hopefully if she visits today we will be able to straight out his medications. Blood pressure remained soft. Continue carvedilol 1.56 mg every 12 hours. Continue furosemide 40 mg daily. Change the time of the furosemide to morning. He also needs some afterload reduction as /if he can tolerate. Will need to go very low and slow with his medical regimen. Continue to supplement potassium. Basic metabolic panel and magnesium daily. Given the severe cardiomyopathy, frequent ventricular ectopy, left bundle branch block, he needs a BIV ICD . Evidently this has been discussed in the past. On discharge from [facility] he was to follow up with his primary pediatric oncologist regarding the BiV ICD (2) Elevated troponin: Code(s): R79.89 - Other specified abnormal findings of blood chemistry Status: Acute Assessment and Plan: This is not related to acute plaque rupture. Is related to heart failure (3) COPD (chronic obstructive pulmonary disease): Qualifiers: COPD type: unspecified COPD Qualified Code(s): J44.9 - Chronic obstructive pulmonary disease, unspecified Code(s): J44.9 - Chronic obstructive pulmonary disease, unspecified Status: Acute Assessment and Plan: Related to tobacco (4) CAD (coronary artery disease): Qualifiers: Coronary Disease-Associated Artery/Lesion type: [place] artery [place] vs. transplanted heart: [place] heart Associated angina: without angina Qualified Code(s): I25.10 - Atherosclerotic heart disease of [place] coronary artery without angina pectoris Code(s): I25.10 - Atherosclerotic heart disease of [place] coronary artery without angina pectoris Status: Chronic Assessment and Plan: Per history. No ischemic symptoms. (5) LV (left ventricular) mural thrombus: Code(s): I51.3 - Intracardiac thrombosis, not elsewhere classified Status: Acute Assessment and Plan: Continue oral anticoagulation with apixaban. Also has bilateral DVT more extensive on the right. Additional Plan Plan discussed with Dr. Carrera [id number] 03/15/2020 Time Spent With Patient Time with patient: less than 15 minutes Subjective Date/time seen: 03/15/20 11:11 Interval history: Follow up for: acute on chronic systolic heart failure, COPD, mural thrombus, DVT, Date of service: 03/15/2020 Subjective: Denied chest discomfort. Shortness of breath improved. Not sure if his lower extremity edema is improved. No lightheadedness or dizziness. Review of Systems Constitutiona
[2020-03-15] MEDS: INSULIN ASPART (*BKC) 100 UNITS/ML SUB-Q (12:29)
[2020-03-15] MEDS: FUROSEMIDE INJ 40 MG/4 ML VIAL IV PUSH (12:29)
[2020-03-15 12:44] LABS: Glucose Point of Care 206 (65-105)
--- NOTE | 2020-03-15 13:25 | P.PNIM_ITS ---
Progress Note: A&P Assessment and Plan (1) Systolic CHF: Qualifiers: Heart failure chronicity: acute on chronic Qualified Code(s): I50.23 - Acute on chronic systolic (congestive) heart failure Code(s): I50.20 - Unspecified systolic (congestive) heart failure Status: Acute Assessment and Plan: Echo shows EF <15%. He was recently hospitalized from 03/05-03/08 related to CHF. He has previously refused life vest. * Cardiology has been consulted and their recommendations are greatly appreciated. * Continue IV furosemide 40 mg IV daily * Continue low-dose carvedilol per cardiology recommendations, increase to 3.25 mg bid * Begin spironolactone 25 mg daily per cardiology * He will require a biventricular ICD by his primary nursing educator. This has been discussed with him at a previous appointment. * Continue daily weights, 1500 ml fluid restriction, monitoring I&Os, and low sodium diet. (2) DVT (deep venous thrombosis): Qualifiers: Affected thrombotic vein of extremity: popliteal Chronicity: acute DVT location: lower extremity Laterality: bilateral Qualified Code(s): I82.433 - Acute embolism and thrombosis of popliteal vein, bilateral Code(s): I82.409 - Acute embolism and thrombosis of unspecified deep veins of unspecified lower extremity Status: Acute Assessment and Plan: Bilateral DVTs, most extensive on right side. HAS-BLED score = 1 * Continue eliquis 10 mg bid (Day 3) for 7 days, then eliquis 5 mg bid. * Prior auth for eliquis was denied, therefore will plan to provide patient with 30 day coupon. Care coordination is following. I placed a call to PCP to inform and discuss care home anticoagulation plans and am waiting for return. (3) LV (left ventricular) mural thrombus: Code(s): I51.3 - Intracardiac thrombosis, not elsewhere classified Status: Acute Assessment and Plan: Evident on echocardiogram. Secondary to severe systolic HF. * Continue anticoagulation with Eliquis (4) Elevated troponin: Code(s): R79.89 - Other specified abnormal findings of blood chemistry Status: Acute Assessment and Plan: Most likely due to acute on chronic congestive heart failure. ACS is not suspected. * Continue to closely monitor symptoms. (5) COPD (chronic obstructive pulmonary disease): Qualifiers: COPD type: unspecified COPD Qualified Code(s): J44.9 - Chronic obstructive pulmonary disease, unspecified Code(s): J44.9 - Chronic obstructive pulmonary disease, unspecified Status: Acute Assessment and Plan: Chronic and stable. He is maintaining adequate oxygenation on room air. * Supplemental O2 as needed. * Continue bronchodilators as needed. (6) Tobacco dependence: Code(s): F17.200 - Nicotine dependence, unspecified, uncomplicated Status: Chronic Assessment and Plan: He smokes 1 ppd. * Continue nicotine patch * Continue to encourage smoking cessation. (7) Pleural effusion: Code(s): J90 - Pleural effusion, not elsewhere classified Status: Acute Assessment and Plan: Small right and trace left pleural effusion, most likely secondary to CHF. * Continue IV lasix. (8) CAD (coronary artery disease): Qualifiers: Associated angina: without angina Coronary Disease-Associated Artery/Lesion type: [place] artery [place] vs. transplanted heart: [place] heart Qualified Code(s): I25.10 - Atherosclerotic heart disease of [place] coronar
--- NOTE | 2020-03-15 13:25 | PM.IMPN ---
Progress Note: A&P Assessment and Plan (1) Systolic CHF: Qualifiers: Heart failure chronicity: acute on chronic Qualified Code(s): I50.23 - Acute on chronic systolic (congestive) heart failure Code(s): I50.20 - Unspecified systolic (congestive) heart failure Status: Acute Assessment and Plan: Echo shows EF <15%. He was recently hospitalized from 03/05-03/08 related to CHF. He has previously refused life vest. Cardiology has been consulted and their recommendations are greatly appreciated. Continue IV furosemide 40 mg IV daily Continue low-dose carvedilol per cardiology recommendations, increase to 3.25 mg bid Begin spironolactone 25 mg daily per cardiology He will require a biventricular ICD by his primary scientific software engineer. This has been discussed with him at a previous appointment. Continue daily weights, 1500 ml fluid restriction, monitoring I&Os, and low sodium diet. (2) DVT (deep venous thrombosis): Qualifiers: Affected thrombotic vein of extremity: popliteal Chronicity: acute DVT location: lower extremity Laterality: bilateral Qualified Code(s): I82.433 - Acute embolism and thrombosis of popliteal vein, bilateral Code(s): I82.409 - Acute embolism and thrombosis of unspecified deep veins of unspecified lower extremity Status: Acute Assessment and Plan: Bilateral DVTs, most extensive on right side. HAS-BLED score = 1 Continue eliquis 10 mg bid (Day 3) for 7 days, then eliquis 5 mg bid. Prior auth for eliquis was denied, therefore will plan to provide patient with 30 day coupon. Care coordination is following. I placed a call to PCP to inform and discuss detention anticoagulation plans and am waiting for return. (3) LV (left ventricular) mural thrombus: Code(s): I51.3 - Intracardiac thrombosis, not elsewhere classified Status: Acute Assessment and Plan: Evident on echocardiogram. Secondary to severe systolic HF. Continue anticoagulation with Eliquis (4) Elevated troponin: Code(s): R79.89 - Other specified abnormal findings of blood chemistry Status: Acute Assessment and Plan: Most likely due to acute on chronic congestive heart failure. ACS is not suspected. Continue to closely monitor symptoms. (5) COPD (chronic obstructive pulmonary disease): Qualifiers: COPD type: unspecified COPD Qualified Code(s): J44.9 - Chronic obstructive pulmonary disease, unspecified Code(s): J44.9 - Chronic obstructive pulmonary disease, unspecified Status: Acute Assessment and Plan: Chronic and stable. He is maintaining adequate oxygenation on room air. Supplemental O2 as needed. Continue bronchodilators as needed. (6) Tobacco dependence: Code(s): F17.200 - Nicotine dependence, unspecified, uncomplicated Status: Chronic Assessment and Plan: He smokes 1 ppd. Continue nicotine patch Continue to encourage smoking cessation. (7) Pleural effusion: Code(s): J90 - Pleural effusion, not elsewhere classified Status: Acute Assessment and Plan: Small right and trace left pleural effusion, most likely secondary to CHF. Continue IV lasix. (8) CAD (coronary artery disease): Qualifiers: Associated angina: without angina Coronary Disease-Associated Artery/Lesion type: [place] artery [place] vs. transplanted heart: [place] heart Qualified Code(s): I25.10 - Atherosclerotic heart disease of [place] coronary artery without angina pectoris Code(s): I25.10 - Atherosclerotic heart disease of [place] coronary artery without angina pectoris Status: Chronic Assessment and Plan: Questionable diagnosis. Surgical history demonstrates cardiac stents but unclear where stenting occurred or when. He is asymptomatic. Continue to monitor. (9) HTN (hypertension) with goal to be determined: Code(s): I10 - E
[2020-03-15 17:22] LABS: Glucose Point of Care 80 (65-105)
[2020-03-15] MEDS: AMIODARONE HCL 200 MG TABLET PO (17:35)
[2020-03-15] MEDS: SPIRONOLACTONE 25 MG TABLET PO (17:35)
[2020-03-15] MEDS: carvediloL 3.125 MG TABLET PO (21:00)
[2020-03-15 21:09] LABS: Glucose Point of Care 165 (65-105)
[2020-03-16] VITALS (16 sets, daily range): BP systolic 95–105; BP diastolic 57–78; PULSE 72–101; RESP 18–24; TEMP 36.1–36.7; O2SAT 96–100
[2020-03-16] MEDS: ACETAMINOPHEN 325 MG TABLET 650 MG PO (02:43)
[2020-03-16 05:41] LABS: Hematocrit 44.5 % (42.0-52.0); Hemoglobin 13.7 g/dL (14.0-18.0); Mean Corpuscular HGB Conc 30.8 g/dl (32-36); Mean Corpuscular Hemoglobin 25.2 pg (26-34); Mean Corpuscular Volume 81.8 fl (80-100); Mean Platelet Volume 11.2 fl (7.4-10.4); Platelet Count Result 190 k/mm3 (150-375); Red Blood Count 5.44 M/mm3 (4.6-6.20); Red Cell Distribution Width 16.5 % (11.5-14.5); White Blood Count 6.9 K/mm3 (4.5-10.0)
[2020-03-16 06:03] LABS: Blood Urea Nitrogen 24 mg/dL (9-20); Calcium 8.5 mg/dL (8.4-10.2); Carbon Dioxide 28 mmol/L (22-30); Chloride 103 mmol/L (98-107); Estimated CRCL calculation 81 ml/min; Estimated Glomerular Filt Rate > 60; Glucose 143 mg/dL (75-110); Magnesium 2.1 mg/dL (1.6-2.3); Sodium 137 mmol/L (137-145)
[2020-03-16 08:30] LABS: Glucose Point of Care 136 (65-105)
[2020-03-16] MEDS: SPIRONOLACTONE 25 MG TABLET PO (09:11)
[2020-03-16] MEDS: AMIODARONE HCL 200 MG TABLET PO ×2 (09:12→13:32)
[2020-03-16] MEDS: ATORVASTATIN 40 MG TABLET PO (09:13)
[2020-03-16] MEDS: FUROSEMIDE INJ 40 MG/4 ML VIAL IV PUSH (09:13)
[2020-03-16] MEDS: APIXABAN 5 MG TABLET 10 MG PO ×2 (09:13→20:57)
[2020-03-16] MEDS: NICOTINE (*PBKC) 21 MG PATCH 1 PATCH TRANSDERM (09:13)
[2020-03-16] MEDS: carvediloL 3.125 MG TABLET PO (09:13)
--- NOTE | 2020-03-16 11:29 | PM.PNCARD ---
Progress Note: A&P Assessment and Plan (1) Acute on chronic systolic heart failure: Code(s): I50.23 - Acute on chronic systolic (congestive) heart failure Status: Acute Assessment and Plan: Records from [facility] hospitalized from 03/05 to 03/08 for shortness of breath and lower extremity edema. Discharge diagnosis CHF systolic/diastolic acute on chronic. Hypertension. CAD. Old CVA. Tobacco use. Hyperlipidemia. Chronic COPD not in exacerbation According to the notes his echo showed severe global LV systolic delicate dysfunction with an ejection fraction of 10%. Grade 2 diastolic dysfunction. D-dimer was elevated but lower extremity Doppler was negative for DVT. His significant other confirmed his medications as follows: Amiodarone 200 mg daily Aspirin 81 mg daily Atorvastatin 40 mg at bedtime Carvedilol 25 mg at breakfast. 12.5 mg at bedtime. Clopidogrel 75 mg daily Furosemide 60 mg daily Losartan 25 mg daily Nitroglycerin 0.4 mg p.r.n. Polyethylene glycol 17 g p.r.n. Potassium chloride 10 mEq 2 tablets b.i.d. Flomax 0.4 mg daily Metformin 1000 mg b.i.d. Symbicort 80/4.5 2 puffs inhalation b.i.d. Spironolactone 25 mg daily. Spironolactone had not yet been picked up from the pharmacy. 03/15/2020: Furosemide 40 mg IV daily continued . Carvedilol was increased to 3.125 mg q.12 hours. Amiodarone 200 mg daily and atorvastatin 40 mg daily was restarted. Spironolactone 25 mg was added. 37 beat run of nonsustained VT 03/16/2020 He was sleeping. Potassium 4.0 and magnesium 2.1 this morning. Increase amiodarone to 400 mg daily. Up titrate carvedilol if blood pressure allows. Will continue to monitor need for supplemental potassium with the addition of spironolactone. Lungs are clear. Edema unchanged. Will transition to home dose of furosemide in the morning. Given the severe cardiomyopathy, frequent ventricular ectopy, left bundle branch block, he needs a BIV ICD . Evidently this has been discussed in the past. He has declined a Life Vest. He has been seen by Dr. Arroyo for the device. This was delayed because of COVID. On discharge from [facility] he was to follow up with his primary rn new grad regarding the BiV ICD (2) Elevated troponin: Code(s): R79.89 - Other specified abnormal findings of blood chemistry Status: Acute Assessment and Plan: This is not related to acute plaque rupture. Is related to heart failure (3) COPD (chronic obstructive pulmonary disease): Qualifiers: COPD type: unspecified COPD Qualified Code(s): J44.9 - Chronic obstructive pulmonary disease, unspecified Code(s): J44.9 - Chronic obstructive pulmonary disease, unspecified Status: Acute Assessment and Plan: Related to tobacco (4) CAD (coronary artery disease): Qualifiers: Coronary Disease-Associated Artery/Lesion type: [place] artery [place] vs. transplanted heart: [place] heart Associated angina: without angina Qualified Code(s): I25.10 - Atherosclerotic heart disease of [place] coronary artery without angina pectoris Code(s): I25.10 - Atherosclerotic heart disease of [place] coronary artery without angina pectoris Status: Chronic Assessment and Plan: Per history. No ischemic symptoms. (5) LV (left ventricular) mural thrombus: Code(s): I51.3 - Intracardiac thrombosis, not elsewhere classified Status: Acute Assessment and Plan: Continue oral anticoagulation with apixaban. Also has bilateral DVT more extensive on the right. Additional Plan Plan discussed with Dr Gar [id number] 03/16/2020 Subjective Date/time seen: 03/16/20 11:29 Interval history: Follow up for: acute on chronic systolic heart failure, COPD, mural thrombus, DVT, Date of service:
[2020-03-16 12:50] LABS: Glucose Point of Care 192 (65-105)
--- NOTE | 2020-03-16 14:44 | PM.IMPN ---
Progress Note: A&P Assessment and Plan (1) Systolic CHF: Qualifiers: Heart failure chronicity: acute on chronic Qualified Code(s): I50.23 - Acute on chronic systolic (congestive) heart failure Code(s): I50.20 - Unspecified systolic (congestive) heart failure Status: Acute Assessment and Plan: Echo shows EF <15%. He was recently hospitalized from 03/05-03/08 related to CHF. He has previously refused life vest. He was noted to have a 37 beat run of NSVT while sleeping this morning. Cardiology has been consulted and their recommendations are greatly appreciated. Transition to furosemide 60 mg PO daily Continue to uptitrate carvedilol per cardiology recommendations - increase to 6.25 mg bid Continue spironolactone 25 mg daily per cardiology Increase amiodarone to 400 mg PO He will require a biventricular ICD by his primary cuff slitter. This has been discussed with him at a previous appointment. Continue daily weights, 1500 ml fluid restriction, monitoring I&Os, and low sodium diet. (2) DVT (deep venous thrombosis): Qualifiers: Affected thrombotic vein of extremity: popliteal Chronicity: acute DVT location: lower extremity Laterality: bilateral Qualified Code(s): I82.433 - Acute embolism and thrombosis of popliteal vein, bilateral Code(s): I82.409 - Acute embolism and thrombosis of unspecified deep veins of unspecified lower extremity Status: Acute Assessment and Plan: Bilateral DVTs, most extensive on right side. HAS-BLED score = 1 Continue eliquis 10 mg bid (Day 4) for 7 days, then eliquis 5 mg bid. Prior auth for eliquis was denied, therefore will plan to provide patient with 30 day coupon. Care coordination is following. I placed a call to PCP to inform and discuss fpc anticoagulation plans and am waiting for return. (3) LV (left ventricular) mural thrombus: Code(s): I51.3 - Intracardiac thrombosis, not elsewhere classified Status: Acute Assessment and Plan: Evident on echocardiogram. Secondary to severe systolic HF. Continue anticoagulation with Eliquis (4) Elevated troponin: Code(s): R79.89 - Other specified abnormal findings of blood chemistry Status: Acute Assessment and Plan: Most likely due to acute on chronic congestive heart failure. ACS is not suspected. Continue to closely monitor symptoms. (5) COPD (chronic obstructive pulmonary disease): Qualifiers: COPD type: unspecified COPD Qualified Code(s): J44.9 - Chronic obstructive pulmonary disease, unspecified Code(s): J44.9 - Chronic obstructive pulmonary disease, unspecified Status: Acute Assessment and Plan: Chronic and stable. He is maintaining adequate oxygenation on room air. Supplemental O2 as needed. Continue bronchodilators as needed. (6) Tobacco dependence: Code(s): F17.200 - Nicotine dependence, unspecified, uncomplicated Status: Chronic Assessment and Plan: He smokes 1 ppd. Continue nicotine patch I have educated him on smoking cessation for 5 minutes. He wants to quit smoking. (7) Pleural effusion: Code(s): J90 - Pleural effusion, not elsewhere classified Status: Acute Assessment and Plan: Small right and trace left pleural effusion, most likely secondary to CHF. Continue Lasix. (8) CAD (coronary artery disease): Qualifiers: Associated angina: without angina Coronary Disease-Associated Artery/Lesion type: [place] artery [place] vs. transplanted heart: [place] heart Qualified Code(s): I25.10 - Atherosclerotic heart disease of [place] coronary artery without angina pectoris Code(s): I25.10 - Atherosclerotic heart disease of [place] coronary artery without angina pectoris Status: Chronic Assessment and Plan: Questionable diagnosis. Surgical history in EMR indicates cardiac stents but unclear w
[2020-03-16 16:15] LABS: Glucose Point of Care 203 (65-105)
[2020-03-16] MEDS: INSULIN ASPART (*BKC) 100 UNITS/ML SUB-Q (17:45)
[2020-03-16 20:49] LABS: Glucose Point of Care 139 (65-105)
[2020-03-16] MEDS: carvediloL 6.25 MG TABLET PO (20:57)
[2020-03-17] VITALS (21 sets, daily range): BP systolic 92–106; BP diastolic 62–78; PULSE 77–88; RESP 16–20; TEMP 36–37.1; O2SAT 100
[2020-03-17 04:46] LABS: Hematocrit 42.5 % (42.0-52.0); Hemoglobin 13.2 g/dL (14.0-18.0); Mean Corpuscular HGB Conc 31.1 g/dl (32-36); Mean Corpuscular Hemoglobin 25.1 pg (26-34); Mean Platelet Volume 10.4 fl (7.4-10.4); Platelet Count Result 190 k/mm3 (150-375); Red Blood Count 5.25 M/mm3 (4.6-6.20); Red Cell Distribution Width 16.5 % (11.5-14.5); White Blood Count 6.6 K/mm3 (4.5-10.0)
[2020-03-17 05:02] LABS: Anion Gap 10.7 mmol/L (7-16); Blood Urea Nitrogen 24 mg/dL (9-20); Calcium 8.5 mg/dL (8.4-10.2); Carbon Dioxide 27 mmol/L (22-30); Chloride 101 mmol/L (98-107); Estimated CRCL calculation 90 ml/min; Estimated Glomerular Filt Rate > 60; Glucose 152 mg/dL (75-110); Potassium 3.7 mmol/L (3.4-5.0); Sodium 135 mmol/L (137-145)
[2020-03-17 05:16] LABS: Hemoglobin A1C 7.8 % (<5.7)
[2020-03-17 08:12] LABS: Glucose Point of Care 146 (65-105)
[2020-03-17] MEDS: ATORVASTATIN 40 MG TABLET PO (09:47)
[2020-03-17] MEDS: AMIODARONE HCL 200 MG TABLET 400 MG PO (09:47)
[2020-03-17] MEDS: APIXABAN 5 MG TABLET 10 MG PO ×2 (09:47→21:27)
[2020-03-17] MEDS: FUROSEMIDE TABLET 20 MG, FUROSEMIDE TABLET 40 MG 60 MG PO (09:48)
[2020-03-17] MEDS: carvediloL 6.25 MG TABLET PO (09:48)
[2020-03-17] MEDS: SPIRONOLACTONE 25 MG TABLET PO (09:49)
[2020-03-17] MEDS: NICOTINE (*PBKC) 21 MG PATCH 1 PATCH TRANSDERM (09:49)
[2020-03-17 12:05] LABS: Glucose Point of Care 207 (65-105)
[2020-03-17] MEDS: INSULIN ASPART (*BKC) 100 UNITS/ML SUB-Q ×2 (13:09→16:46)
--- NOTE | 2020-03-17 15:01 | PM.PNCARD ---
Progress Note: A&P Assessment and Plan (1) Acute on chronic systolic heart failure: Code(s): I50.23 - Acute on chronic systolic (congestive) heart failure Status: Acute Assessment and Plan: Records from [facility] hospitalized from 03/05 to 03/08 for shortness of breath and lower extremity edema. According to the notes his echo showed severe global LV systolic delicate dysfunction with an ejection fraction of 10%. Grade 2 diastolic dysfunction. D-dimer was elevated but lower extremity Doppler was negative for DVT. His significant other confirmed his medications as follows: Amiodarone 200 mg daily Aspirin 81 mg daily Atorvastatin 40 mg at bedtime Carvedilol 25 mg at breakfast. 12.5 mg at bedtime. Clopidogrel 75 mg daily Furosemide 60 mg daily Losartan 25 mg daily Nitroglycerin 0.4 mg p.r.n. Polyethylene glycol 17 g p.r.n. Potassium chloride 10 mEq 2 tablets b.i.d. Flomax 0.4 mg daily Metformin 1000 mg b.i.d. Symbicort 80/4.5 2 puffs inhalation b.i.d. Spironolactone 25 mg daily. Spironolactone had not yet been picked up from the pharmacy. 03/15/2020: Furosemide 40 mg IV daily continued . Carvedilol was increased to 3.125 mg q.12 hours. Amiodarone 200 mg daily and atorvastatin 40 mg daily was restarted. Spironolactone 25 mg was added. 37 beat run of nonsustained VT 03/16/2020 He was sleeping. Potassium 4.0 and magnesium 2.1 this morning. Increased amiodarone to 400 mg daily. Carvedilol up titrated to 6.25 mg q.12 hours. Continues to diurese well. 03/17/2020: Less ectopy. Transitioned to p.o. Lasix today. Potassium 3.7. Magnesium 2.0. Will give 40 mEq of potassium today. Continue to monitor need for supplemental potassium since spironolactone has been started. Continue carvedilol 6.25 mg q.12 hours. Blood pressure remains soft but stable. He is asymptomatic. Will need to restart losartan at some point. Given the severe cardiomyopathy, frequent ventricular ectopy, left bundle branch block, he needs a BIV ICD . Evidently this has been discussed in the past. He has declined a Life Vest. He has been seen by Dr. Arroyo for the device. This was delayed because of COVID. On discharge from [facility] he was to follow up with his primary digital advertising analyst regarding the BiV ICD (2) Elevated troponin: Code(s): R79.89 - Other specified abnormal findings of blood chemistry Status: Acute Assessment and Plan: This is not related to acute plaque rupture. Is related to heart failure (3) COPD (chronic obstructive pulmonary disease): Qualifiers: COPD type: unspecified COPD Qualified Code(s): J44.9 - Chronic obstructive pulmonary disease, unspecified Code(s): J44.9 - Chronic obstructive pulmonary disease, unspecified Status: Acute Assessment and Plan: Related to tobacco (4) CAD (coronary artery disease): Qualifiers: Coronary Disease-Associated Artery/Lesion type: [place] artery [place] vs. transplanted heart: [place] heart Associated angina: without angina Qualified Code(s): I25.10 - Atherosclerotic heart disease of [place] coronary artery without angina pectoris Code(s): I25.10 - Atherosclerotic heart disease of [place] coronary artery without angina pectoris Status: Chronic Assessment and Plan: Per history. No ischemic symptoms. (5) LV (left ventricular) mural thrombus: Code(s): I51.3 - Intracardiac thrombosis, not elsewhere classified Status: Acute Assessment and Plan: Continue oral anticoagulation with apixaban. Also has bilateral DVT more extensive on the right. Additional Plan Hospitalist will touch base with his established digital advertising analyst in light of the 37 beat run of ventricular tachycardia he had yesterday. May not be
--- NOTE | 2020-03-17 15:41 | PM.IMPN ---
Progress Note: A&P Assessment and Plan (1) Systolic CHF: Qualifiers: Heart failure chronicity: acute on chronic Qualified Code(s): I50.23 - Acute on chronic systolic (congestive) heart failure Code(s): I50.20 - Unspecified systolic (congestive) heart failure Status: Acute Assessment and Plan: Echo shows EF <15%. He was recently hospitalized from 03/05-03/08 related to CHF. He has previously refused life vest. He was noted to have a 37 beat run of NSVT while sleeping this morning. Cardiology has been consulted and their recommendations are greatly appreciated. Continue furosemide 60 mg PO daily Continue to uptitrate carvedilol per cardiology recommendations -continue at 6.25 mg bid Continue spironolactone 25 mg daily per cardiology Continue amiodarone at increased dose 400 mg PO Continue daily weights, 1500 ml fluid restriction, monitoring I&Os, and low sodium diet. He will require a biventricular ICD by his primary marketing automation specialist. This has been discussed with him at a previous appointment. I have attempted to contact his primary marketing automation specialist, Dr. Haywood today. I believe he may benefit from transfer to facility for BIV ICD placement given his 37 beat run of NSVT. However, this may not be able to be performed right away given recent anticoagulation for DVT and mural thrombus. Continue daily weights, 1500 ml fluid restriction, monitoring I&Os, and low sodium diet. (2) DVT (deep venous thrombosis): Qualifiers: DVT location: lower extremity Affected thrombotic vein of extremity: popliteal Chronicity: acute Laterality: bilateral Qualified Code(s): I82.433 - Acute embolism and thrombosis of popliteal vein, bilateral Code(s): I82.409 - Acute embolism and thrombosis of unspecified deep veins of unspecified lower extremity Status: Acute Assessment and Plan: Bilateral DVTs, most extensive on right side. HAS-BLED score = 1 Continue eliquis 10 mg bid (Day 5) for 7 days, then eliquis 5 mg bid. Prior auth for eliquis was denied, therefore will plan to provide patient with 30 day coupon. Care coordination is following. Discussed with PCP and agreed to continue Eliquis for 30 days. May consider transition to warfarin following. They will follow. (3) LV (left ventricular) mural thrombus: Code(s): I51.3 - Intracardiac thrombosis, not elsewhere classified Status: Acute Assessment and Plan: Evident on echocardiogram. Secondary to severe systolic HF. Continue anticoagulation with Eliquis (4) Elevated troponin: Code(s): R79.89 - Other specified abnormal findings of blood chemistry Status: Acute Assessment and Plan: Most likely due to acute on chronic congestive heart failure. ACS is not suspected. Continue to closely monitor symptoms. (5) COPD (chronic obstructive pulmonary disease): Qualifiers: COPD type: unspecified COPD Qualified Code(s): J44.9 - Chronic obstructive pulmonary disease, unspecified Code(s): J44.9 - Chronic obstructive pulmonary disease, unspecified Status: Acute Assessment and Plan: Chronic and stable. He is maintaining adequate oxygenation on room air. Supplemental O2 as needed. Continue bronchodilators as needed. (6) Tobacco dependence: Code(s): F17.200 - Nicotine dependence, unspecified, uncomplicated Status: Chronic Assessment and Plan: He smokes 1 ppd. Continue nicotine patch I have educated him on smoking cessation for 5 minutes. He wants to quit smoking. (7) Pleural effusion: Code(s): J90 - Pleural effusion, not elsewhere classified Status: Acute Assessment and Plan: Small right and trace left pleural effusion, most likely secondary to CHF. Continue Lasix. (8) CAD (coronary artery disease): Qualifiers: Coronary Disease-Associated Artery/Lesion type: [place] artery [place] vs. trans
[2020-03-17 16:18] LABS: Glucose Point of Care 215 (65-105)
[2020-03-17] MEDS: POTASSIUM CHLORIDE 20 MEQ TABLET 40 MEQ PO (16:45)
[2020-03-17 20:22] LABS: Glucose Point of Care 192 (65-105)
[2020-03-17] MEDS: carvediloL 12.5 MG TABLET PO (21:28)
[2020-03-17] MEDS: ACETAMINOPHEN 325 MG TABLET 650 MG PO (21:31)
[2020-03-18] VITALS (8 sets, daily range): BP systolic 92–96; BP diastolic 63–70; PULSE 76–86; RESP 18–22; TEMP 36.1–37.1; O2SAT 100
[2020-03-18 04:48] LABS: Hematocrit 47.7 % (42.0-52.0); Hemoglobin 14.6 g/dL (14.0-18.0); Mean Corpuscular HGB Conc 30.6 g/dl (32-36); Mean Corpuscular Hemoglobin 25.3 pg (26-34); Mean Corpuscular Volume 82.5 fl (80-100); Mean Platelet Volume 11.4 fl (7.4-10.4); Platelet Count Result 182 k/mm3 (150-375); Red Blood Count 5.78 M/mm3 (4.6-6.20)
[2020-03-18 05:05] LABS: Anion Gap 10.7 mmol/L (7-16); Blood Urea Nitrogen 28 mg/dL (9-20); Calcium 8.6 mg/dL (8.4-10.2); Carbon Dioxide 24 mmol/L (22-30); Chloride 105 mmol/L (98-107); Estimated CRCL calculation 90 ml/min; Estimated Glomerular Filt Rate > 60; Glucose 137 mg/dL (75-110); Potassium 4.7 mmol/L (3.4-5.0); Sodium 135 mmol/L (137-145)
[2020-03-18 08:12] LABS: Glucose Point of Care 142 (65-105)
[2020-03-18] MEDS: APIXABAN 5 MG TABLET 10 MG PO (08:37)
[2020-03-18] MEDS: AMIODARONE HCL 200 MG TABLET 400 MG PO (08:37)
[2020-03-18] MEDS: FUROSEMIDE TABLET 20 MG, FUROSEMIDE TABLET 40 MG 60 MG PO (08:38)
[2020-03-18] MEDS: ATORVASTATIN 40 MG TABLET PO (08:38)
[2020-03-18] MEDS: NICOTINE (*PBKC) 21 MG PATCH 1 PATCH TRANSDERM (08:39)
[2020-03-18] MEDS: SPIRONOLACTONE 25 MG TABLET PO (08:39)
[2020-03-18 11:41] LABS: Glucose Point of Care 213 (65-105)
[2020-03-18] MEDS: INSULIN ASPART (*BKC) 100 UNITS/ML SUB-Q (12:13)
--- NOTE | 2020-03-18 13:16 | PM.DS ---
DS: Admitting Diagnosis Admitting Diagnosis Admitting Diagnosis: Acute on chronic systolic (congestive) heart failure DS: Discharge Diagnosis Discharge Diagnosis (1) Systolic CHF: Qualifiers: Heart failure chronicity: acute on chronic Qualified Code(s): I50.23 - Acute on chronic systolic (congestive) heart failure Code(s): I50.20 - Unspecified systolic (congestive) heart failure Status: Acute Assessment and Plan: Echo shows EF <15%. He was recently hospitalized from 03/05-03/08 in [place] related to CHF. He has previously refused life vest. He was noted to have a 37 beat run of NSVT while sleeping on 03/16/2020. He was seen in consultation by cardiology. He had very soft blood pressures, therefore his medications were monitor closely and up titrated as tolerated by his blood pressure. He was able to tolerate 6.25 mg b.i.d. of carvedilol which he will continue. He will continue p.o. Lasix 60 mg, spironolactone 25. His amiodarone was increased to 400 mg daily. We discussed fluid restriction and low-sodium diet. He will require a biventricular ICD and has been evaluated by uniforms sales representative Dr. Arroyo for such. I spoke with his primary bag presser Dr. Haywood as well as Dr. Arroyo for possible transfer to [place] for inpatient placement, however it was recommended that he follow-up as an outpatient. He was given an appointment the following week and it is imperative that he attend this appointment. (2) DVT (deep venous thrombosis): Qualifiers: DVT location: lower extremity Affected thrombotic vein of extremity: popliteal Chronicity: acute Laterality: bilateral Qualified Code(s): I82.433 - Acute embolism and thrombosis of popliteal vein, bilateral Code(s): I82.409 - Acute embolism and thrombosis of unspecified deep veins of unspecified lower extremity Status: Acute Assessment and Plan: Venous Doppler showed bilateral DVTs, most extensive on right side. HAS-BLED score = 1. he was started on Eliquis. His prior offer Eliquis was denied, therefore he received a 30 day coupon, however he will likely need to switch to warfarin upon completion of starter pack. I discussed this with his primary care office and they are in agreement to continue Eliquis at this time. I educated patient on the risk of bleeding with Eliquis and the importance of monitoring for any signs of bleeding. (3) LV (left ventricular) mural thrombus: Code(s): I51.3 - Intracardiac thrombosis, not elsewhere classified Status: Acute Assessment and Plan: Evident on echocardiogram. Secondary to severe systolic HF. Continue anticoagulation with Eliquis (4) Elevated troponin: Code(s): R79.89 - Other specified abnormal findings of blood chemistry Status: Acute Assessment and Plan: Most likely due to acute on chronic congestive heart failure. ACS was not suspected. (5) COPD (chronic obstructive pulmonary disease): Qualifiers: COPD type: unspecified COPD Qualified Code(s): J44.9 - Chronic obstructive pulmonary disease, unspecified Code(s): J44.9 - Chronic obstructive pulmonary disease, unspecified Status: Acute Assessment and Plan: Chronic and stable. He maintained adequate oxygenation on room air. (6) Tobacco dependence: Code(s): F17.200 - Nicotine dependence, unspecified, uncomplicated Status: Chronic Assessment and Plan: He smokes 1 ppd. he was given a nicotine patch during his stay. I educated him on smoking cessation for 5 minutes and he expressed that he wants to quit smoking. (7) Pleural effusion: Code(s): J90 - Pleural effusion, not elsewhere classified Status: Acute Assessment and Plan: Small right and trace left pleural effusion, most likely secondary to CHF. Continue Lasix. (8) CAD (coronary artery disease): Qualifiers: Coronary Disease-Associate
--- NOTE | 2020-03-18 14:31 | PM.PNCARD ---
Progress Note: A&P Assessment and Plan (1) Acute on chronic systolic heart failure: Code(s): I50.23 - Acute on chronic systolic (congestive) heart failure Status: Acute Assessment and Plan: Very soft blood pressure after 12.5 mg of carvedilol last evening. Decrease back down to 6.25 mg every 12 hours. Continue furosemide to 60 mg p.o. daily. Continue spironolactone 25 mg daily. Amiodarone 400 mg daily. Monitor BMP as an outpatient with results to go to his primary care provider as well as Dr. Haywood and Dr. Arroyo. (2) Elevated troponin: Code(s): R79.89 - Other specified abnormal findings of blood chemistry Status: Acute Assessment and Plan: Related to heart failure not ACS (3) COPD (chronic obstructive pulmonary disease): Qualifiers: COPD type: unspecified COPD Qualified Code(s): J44.9 - Chronic obstructive pulmonary disease, unspecified Code(s): J44.9 - Chronic obstructive pulmonary disease, unspecified Status: Acute Assessment and Plan: Related to tobacco (4) CAD (coronary artery disease): Qualifiers: Coronary Disease-Associated Artery/Lesion type: [place] artery [place] vs. transplanted heart: [place] heart Associated angina: without angina Qualified Code(s): I25.10 - Atherosclerotic heart disease of [place] coronary artery without angina pectoris Code(s): I25.10 - Atherosclerotic heart disease of [place] coronary artery without angina pectoris Status: Chronic Assessment and Plan: Per history. No ischemic symptoms. Continue ASA 81 mg daily (5) LV (left ventricular) mural thrombus: Code(s): I51.3 - Intracardiac thrombosis, not elsewhere classified Status: Acute Assessment and Plan: Continue oral anticoagulation with apixaban. Also has bilateral DVT more extensive on the right. Additional Plan OK to discharge from a cardiac standpoint with close Follow-up with See discharge instruction. Plan discussed with Dr Mack [id number] 03/18/2020 Subjective Date/time seen: 03/18/20 14:31 Interval history: Follow up for: acute on chronic systolic heart failure, COPD, mural thrombus, DVT, Date of service: 03/18/2020 Subjective: Denied chest discomfort. Breathing is comfortable. Ready to go home. Informed of appointment to see Dr. Arroyo on Sunday to discuss biventricular pacemaker/ICD. Informed of medication changes. He wants to make sure that we talked to Kaitlin about his medications and appointments. Review of Systems Constitutional: Constitutional: Reports difficulty sleeping ( Does not usually sleep at night. Sleeps in a recliner), Denies fatigue, Denies headache(s) and Reports weakness Eyes: Eyes: Denies blurry vision ENT: Denies headache(s), Reports hearing loss and Denies neck pain Cardiovascular: Cardiovascular: Denies chest pain, Reports pedal edema and Reports dyspnea ( improved) Respiratory: Respiratory: Denies cough and Reports dyspnea ( improved) Gastrointestinal: Gastrointestinal: Denies abdominal pain Genitourinary: Genitourinary: Denies hematuria and Denies dysuria Musculoskeletal: Musculoskeletal: Denies neck pain Integumentary/Breasts: Skin/Breast: Denies dry skin Neurologic: Denies headache(s) and Reports weakness Psychiatric: Psychiatric: Denies anxiety Endocrine: Endocrine: Denies fatigue Hematologic/Lymphatic: Hematologic/Lymphatic: Denies easy bleeding Allergic/Immunologic: Allergic/Immunologic: Denies GI upset with certain foods Exam Narrative: Exam Narrative: laying comfortably in bed. Head of bed elevated 45?. Alert, cooperative in no distress. Hard of hearing. Const: General: no acute distress HENMT: Head: normocephalic and atraumat
[2020-03-18 16:29] LABS: Glucose Point of Care 195 (65-105)
--- NOTE | 2020-03-18 17:10 | PC.NURSE ---
Patient discharged at 1710 on 03/18/20. Patient and family state understanding of instruction. Belongings list reviewed. IV removed. Patient transferred out via wheelchair.
== END 2020-03-18 17:10 | disposition home or self-care (01) | DRG 194 ==
LOC: ANHED 22:41 → ANHIMU 23:58
PROVIDERS: General Practice; Physician Assistant; Admitting Provider Family Medicine; Emergency Provider Emergency Medicine; Visit Provider Internal Medicine
DX: I11.0 Hypertensive heart disease with heart failure (principal); I50.23 Acute on chronic systolic (congestive) heart failure; I27.20 Pulmonary hypertension, unspecified; I82.433 Acute embolism and thrombosis of popliteal vein, bilateral; I51.3 Intracardiac thrombosis, not elsewhere classified; R09.02 Hypoxemia; R79.89 Other specified abnormal findings of blood chemistry; I25.10 Atherosclerotic heart disease of native coronary artery without angina pectoris; J44.9 Chronic obstructive pulmonary disease, unspecified; F17.210 Nicotine dependence, cigarettes, uncomplicated; E11.9 Type 2 diabetes mellitus without complications; Z86.73 Personal history of transient ischemic attack (TIA), and cerebral infarction without residual deficits
CPT/HCPCS: 36415; 36600; 71045; 71275; 80048; 80053; 81003; 82375; 82805; 83036; 83050; 83605; 83690; 83735; 83880; 84439; 84443; 84484; 85025; 85027; 85380; 85610; 85730; 93005; 93970; 94640; 96372; 99285; A9270; C8929; J1650; J1815; J1940; Q9957; Q9967